=== PATIENT | female | born 2000 | race Hispanic/Latino ===

== ENCOUNTER 2023-10-20 13:26 | Day surgery (SDC) | payer MEDICAID, OTHER ==
[2023-10-20 14:03] VITALS: BMI 43.0
== END 2023-10-20 16:40 | disposition home or self-care (01) ==
LOC: CSHLD/OP 13:26
PROVIDERS: ATTEND Family Medicine
DX: Z36.89 Encounter for other specified antenatal screening (principal); O36.8190 Decreased fetal movements, unspecified trimester, not applicable or unspecified; Z3A.00 Weeks of gestation of pregnancy not specified
CPT/HCPCS: 59025; 76819; 99282

== ENCOUNTER 2023-10-22 19:54 | Inpatient (IN) | payer MEDICAID, OTHER ==
[2023-10-22] MEDS ORDERED: HYDROcodone/Acetaminophen 5/325 mg Tablet PO PRN (20:35)
[2023-10-22] MEDS ORDERED: Acetaminophen 500 MG TAB PO PRN (20:35)
[2023-10-22] MEDS ORDERED: Methylergonovine 0.2 MG/ML VIAL IM PRN (20:35)
[2023-10-22] MEDS ORDERED: hydrALAZINE 20 MG/ML VIAL SLOW IVP PRN (20:35)
[2023-10-22] MEDS ORDERED: Carboprost 250 MCG/ML AMP IM PRN (20:35)
[2023-10-22] MEDS ORDERED: Tranexamic Acid 1,000 MG/10 ML VIAL IVP PRN (20:35)
[2023-10-22] MEDS ORDERED: Misoprostol 200 MCG TAB PR PRN (20:35)
[2023-10-22] MEDS ORDERED: Diphenoxylate HCl/Atropine Tablet PO PRN (20:35)
[2023-10-22] MEDS ORDERED: Ibuprofen 800 MG TAB PO PRN (20:35)
[2023-10-22] MEDS ORDERED: fentaNYL 50 mcg/mL 1 mL Vial SLOW IVP PRN (20:35)
[2023-10-22] MEDS ORDERED: Lidocaine 1% (PF) 30 ML VIAL SC PRN (20:35)
[2023-10-22] MEDS ORDERED: Promethazine HCl 25 MG/ML VIAL IM PRN (20:35)
[2023-10-22] MEDS: Lactated Ringer's 1,000 ML IV SCH (20:50)
[2023-10-22 21:11] VITALS: BMI 44.6
[2023-10-22 21:12] LABS: Hematocrit 36.2 % (34.9-44.5); Hemoglobin 13.1 g/dL (12.0-15.5); Mean Corpuscular HGB CONC 36.2 g/dL (32.0-36.0); Mean Corpuscular Hemoglobin 32.2 pg (27.0-33.0); Mean Corpuscular Volume 88.9 fL (81.6-98.3); Mean Platelet Volume 11.7 fL (7.4-10.4); Platelet Count 219 10x3/uL (150-450); RBC Distribution Width 12.8 % (11.5-14.5); Red Blood Cell (RBC) Count 4.07 10x6/uL (3.90-5.03); White Blood Cell (WBC) Count 10.1 10x3/uL (3.5-10.5)
[2023-10-22] MEDS: Misoprostol 100 MCG TAB PO SCH (21:31)
[2023-10-22] MEDS ORDERED: Penicillin G Potassium 5 MILL.UNITS VIAL ONE (21:39)
[2023-10-22 21:42] LABS: HBsAg Index 0.15 S/CO (0-0.99); Hep B Surf Ag - L&D Non-Reactive S/CO (NonReactive)
[2023-10-22] MEDS: Penicillin G Potassium 5 MILL.UNITS in Sodium Chloride 0.9% 100 ML IVPB SCH (21:42)
[2023-10-22] MEDS ORDERED: Oxytocin 30 units/NS 500 ML 500 ML IV SCH ×2 (21:45)
[2023-10-22 23:36] LABS: Syphilis Antibody Nonreactive (Nonreactive); Syphilis Antibody Index 0.07 S/CO (<1.00 Non-Reactive)
[2023-10-23] MEDS: Penicillin G 2.5 MILL.units 2.5 MILL.UNITS in Premix 1 BAG IVPB SCH (02:12)
[2023-10-23] MEDS ORDERED: Penicillin G 2.5 MILL.units 2.5 MILL.UNITS in Premix 1 BAG IVPB SCH (04:00)
[2023-10-23] MEDS: fentaNYL/Ropivacaine Epidural 100 ML ONE (09:23)
[2023-10-23] MEDS: Oxytocin 30 units/NS 500 ML 500 ML IV SCH (09:28)
[2023-10-23] MEDS: Ondansetron PF 4 MG/2 ML Vial IVP PRN (10:22)
[2023-10-23] MEDS ORDERED: diphenhydrAMINE 50 MG/ML VIAL IVP PRN (12:56)
[2023-10-23] MEDS ORDERED: ePHEDrine Sulfate 50 MG/10 ML VIAL SLOW IVP PRN (12:56)
[2023-10-23] MEDS ORDERED: Ondansetron PF 4 MG/2 ML Vial IVP PRN ×2 (12:56→19:52)
[2023-10-23] MEDS ORDERED: Moisturizing Cream (Eucerin) 113 GM JAR TOP PRN (12:56)
[2023-10-23] MEDS ORDERED: Acetaminophen 325 MG TAB PO PRN (12:56)
[2023-10-23] MEDS ORDERED: Naloxone HCl 0.4 mg/ml Vial IVP PRN ×2 (12:56)
[2023-10-23] MEDS ORDERED: Lactated Ringer's 500 ML IV PRN (12:56)
[2023-10-23] MEDS ORDERED: Promethazine HCl 25 MG/ML VIAL IM PRN ×2 (12:56→19:52)
[2023-10-23] MEDS ORDERED: fentaNYL 2 mcg/Ropivacaine 0.2% Epidural 100 ML CADD EPIDURAL SCH (13:00)
[2023-10-23] MEDS ORDERED: Communication Order-Pharmacy FS SCH (13:00)
[2023-10-23] MEDS ORDERED: Benzocaine-Menthol 82.5 ML CAN TOP PRN (19:52)
[2023-10-23] MEDS ORDERED: Oxytocin 30 units/NS 500 ML 500 ML IV SCH (19:52)
[2023-10-23] MEDS ORDERED: Bisacodyl 10 MG SUPP PR PRN (19:52)
[2023-10-23] MEDS ORDERED: Boostrix 0.5 ML (Tdap) VIAL (>/=7 yrs of age) IM ONE (19:52)
[2023-10-23] MEDS ORDERED: Milk Of Magnesia 30 ML UDCUP PO PRN (19:52)
[2023-10-23] MEDS ORDERED: hydrALAZINE 20 MG/ML VIAL SLOW IVP PRN (19:52)
[2023-10-23] MEDS ORDERED: Lanolin Ointment 7 GM TUBE TOP PRN (19:52)
[2023-10-23] MEDS ORDERED: diphenhydrAMINE 25 MG CAP PO PRN (19:52)
[2023-10-23] MEDS: Oxytocin 30 units/NS 500 ML 500 ML ONE (19:59)
[2023-10-23] MEDS: Ibuprofen 800 MG TAB PO SCH (22:27)
[2023-10-23] MEDS: Docusate 100 MG CAP PO SCH (22:28)
[2023-10-24] MEDS: Ferrous Sulfate 325 MG TAB PO SCH (07:43)
[2023-10-24] MEDS: Prenatal Vitamin 1 TAB PO SCH (08:40)
[2023-10-25] MEDS: HYDROcodone/Acetaminophen 5/325 mg Tablet PO PRN (09:04)
[2023-10-25 09:55] VITALS: BP 113/64; TEMP 98.3
== END 2023-10-25 08:40 | disposition home or self-care (01) | DRG 807 ==
LOC: CSHLD 19:54 → CSHPP 10-23 20:15
PROVIDERS: ADMIT Family Medicine; ATTEND Family Medicine
PROC: 10907ZC Drainage of Amniotic Fluid, Therapeutic from Products of Conception, Via Natural or Artificial Opening (ICD-10-PCS; 2023-10-22)
PROC: 10E0XZZ Delivery of Products of Conception, External Approach (ICD-10-PCS; principal; 2023-10-23)
PROC: 0KQM0ZZ Repair Perineum Muscle, Open Approach (ICD-10-PCS; 2023-10-23)
PROC: 10H07YZ Insertion of Other Device into Products of Conception, Via Natural or Artificial Opening (ICD-10-PCS; 2023-10-23)
PROC: 3E033XZ Introduction of Vasopressor into Peripheral Vein, Percutaneous Approach (ICD-10-PCS; 2023-10-23)
DX: O99.214 Obesity complicating childbirth (principal); Z37.0 Single live birth; E66.01 Morbid (severe) obesity due to excess calories; O99.824 Streptococcus B carrier state complicating childbirth; O69.81X0 Labor and delivery complicated by cord around neck, without compression, not applicable or unspecified; Z3A.39 39 weeks gestation of pregnancy; O70.1 Second degree perineal laceration during delivery
CPT/HCPCS: 36415; 85027; 86780; 86850; 86900; 86901; 87340; J2405; J2540; J2590; J3490; J7120

== ENCOUNTER 2024-12-21 10:49 | Outpatient (CLI) | payer OTHER | END 2024-12-21 10:50 | disposition home or self-care (01) | LOC: CSHULT 10:49 | PROVIDERS: ATTEND Family Medicine | DX: Z34.82 Encounter for supervision of other normal pregnancy, second trimester (principal); Z3A.19 19 weeks gestation of pregnancy | CPT/HCPCS: 76805 ==